=== PATIENT | male | born 1985 | race Caucasian/White ===

== ENCOUNTER 2024-09-27 16:46 | Inpatient (IN) | payer OTHER ==
[~2024-09-27] VITALS: Ht 175.3 cm; Wt 88.6 kg
[2024-09-27] MEDS ORDERED: 0.9% SODIUM CHLORIDE 10 ML SYRINGE IVP ONE (17:09)
[2024-09-27] MEDS ORDERED: IOHEXOL 350 MG/ML 100 ML VIAL ONE (17:09)
[2024-09-27] MEDS ORDERED: SODIUM CHLORIDE 0.9% 100 ML ONE (17:09)
[2024-09-27 17:24] LABS: BASOPHILS % (AUTO) 0.9 % (0.0-2.0); HEMATOCRIT 39.1 % (41-53); HEMOGLOBIN 12.9 g/dL (13.5-17.5); LYMPHOCYTES # (AUTO) 2.3 K/uL (1.0-4.8); LYMPHOCYTES % (AUTO) 39.8 % (22.0-44.0); MEAN CORPUSCULAR HEMOGLOBIN 28.4 pg (26.0-34.0); MEAN CORPUSCULAR VOLUME 86 fL (80-100); MONOCYTES # (AUTO) 0.4 K/uL (0.1-1.0); MONOCYTES % (AUTO) 7.3 % (2.0-9.0); NEUTROPHILS # (AUTO) 2.7 K/uL (1.8-7.7); PLATELET COUNT (AUTO) 329 K/uL (150-450); RED BLOOD CELL COUNT(AUTO) 4.53 MIL/uL (4.50-5.90); RED CELL DISTRIBUTION WIDTH 13.8 % (11.5-14.5); WHITE BLOOD COUNT (AUTO) 5.7 K/uL (4.5-11.0)
[2024-09-27 17:29] LABS: ANION GAP 7 mmol/L (8-16); CALCIUM, TOTAL 8.3 mg/dL (8.8-10.5); CARBON DIOXIDE 25 mmol/L (22-29); CHLORIDE 105 mmol/L (98-107); CREATININE 0.87 mg/dL (0.60-1.30); GLOMERULAR FILTR. RATE CALC > 60 mL/min (>60); GLUCOSE,RANDOM 107 mg/dL (70-110); POTASSIUM 3.6 mmol/L (3.5-5.1); SODIUM SERUM 137 mmol/L (136-145); UREA NITROGEN, BLOOD 13 mg/dL (7-18)
[2024-09-27 17:36] LABS: ALANINE AMINOTRANSFERASE 30 U/L (12-78); ALBUMIN 3.4 g/dL (3.4-5.0); ALKALINE PHOSPHATASE 79 U/L (46-116); ASPARTATE AMINOTRANSFERASE 28 U/L (15-37); BILIRUBIN,TOTAL 0.2 mg/dL (0.1-1.0); LIPASE 41 U/L (16-77); TOTAL PROTEIN, SERUM 6.9 g/dL (6.4-8.2)
[2024-09-27 17:42] LABS: ALCOHOL, BLOOD (SERUM) < 3 mg/dL (0-10)
[2024-09-27 19:28] LABS: APPEARANCE,URINE CLEAR (CLEAR); BILIRUBIN,URINE NEGATIVE (NEGATIVE); COLOR,URINE COLORLESS (YELLOW); GLUCOSE, URINE (UA) NEGATIVE (NEGATIVE); KETONES,URINE NEGATIVE (NEGATIVE); LEUKOCYTE ESTERASE ,URINE NEGATIVE (NEGATIVE); NITRATE,URINE NEGATIVE (NEGATIVE); OCCULT BLOOD,URINE NEGATIVE (NEGATIVE); PH,URINE 5.5 (5.0-8.0); PH,URINE DRUG SCREEN 5.5 (5.0-8.0); PROTEIN,URINE NEGATIVE (NEGATIVE); SPECIFIC GRAVITIY, URINE 1.006 (1.003-1.030); UROBILINOGEN,URINE <=1.0 mg/dL (<=1.0)
[2024-09-27 19:34] LABS: AMPHET/METH SCREEN,URINE POSITIVE (NEGATIVE); BARBITURATE SCREEN, URINE NEGATIVE (NEGATIVE); BENZODIAZEPINES SCREEN,URINE NEGATIVE (NEGATIVE); CANNABINOID SCREEN,URINE NEGATIVE (NEGATIVE); COCAINE SCREEN,URINE NEGATIVE (NEGATIVE); METHADONE SCREEN, URINE NEGATIVE (NEGATIVE); OPIATE SCREEN,URINE NEGATIVE (NEGATIVE); PHENCYCLIDINE SCREEN,URINE NEGATIVE (NEGATIVE)
[2024-09-27 19:35] LABS: ALCOHOL, URINE DRUG SCREEN NEGATIVE (NEGATIVE)
[2024-09-27] MEDS: FAMOTIDINE 20 MG/2 ML VIAL IVP ONE (20:20)
[2024-09-27] MEDS: KETOROLAC TROMETHAMINE 30 MG/ML VIAL IVP ONE (20:20)
[2024-09-27] MEDS ORDERED: ONDANSETRON HCL 4 MG/2 ML VIAL IVP PRN (21:00)
[2024-09-27] MEDS ORDERED: ACETAMINOPHEN 325 MG TABLET PO PRN (21:00)
[2024-09-27] MEDS: DEXTROSE 5%-LACTATED RINGERS 1,000 ML IV SCH (21:52)
[2024-09-27] MEDS: DOCUSATE SODIUM 100 MG CAPSULE PO SCH (21:53)
[2024-09-27] MEDS: POTASSIUM CHLORIDE 10% 40 MEQ/30 ML LIQUID UDCUP PO ONE (21:53)
[2024-09-27] MEDS ORDERED: SODIUM CHLORIDE 0.9% 500 ML IV ONE (22:54)
[2024-09-27 23:00] VITALS: BP 126/73; PULSE 62; RESP 18; TEMP 97.9; O2SAT 99
[2024-09-27] MEDS: VANCOMYCIN 1.25 GM/WATER(PEG) 250 ML IV ONE (23:10)
[2024-09-28] MEDS ORDERED: MIRT-89 PO (03:17)
[2024-09-28] MEDS ORDERED: METH-530 PO (03:17)
[2024-09-28] MEDS ORDERED: BUPR1TAB46 SL (03:17)
[2024-09-28] MEDS ORDERED: ESCI-8 PO (03:17)
[2024-09-28 03:56] VITALS: BP 131/81; PULSE 69; RESP 18; TEMP 97.8; O2SAT 100
[2024-09-28] MEDS ORDERED: HYDR25TA2 PO (05:13)
[2024-09-28] MEDS ORDERED: ARIP10TA38 PO (05:13)
[2024-09-28] MEDS ORDERED: ASPI-1450 PO (05:13)
[2024-09-28] MEDS ORDERED: ATOM40CA9 PO (05:13)
[2024-09-28] MEDS ORDERED: ATOR20TA PO (05:13)
[2024-09-28] MEDS ORDERED: AMLO-257 PO (05:13)
[2024-09-28] MEDS ORDERED: ARIP5TAB37 PO (05:13)
[2024-09-28] MEDS ORDERED: LACT10SO85 PO (05:13)
[2024-09-28] MEDS ORDERED: LEVA15HF3 PO (05:20)
[2024-09-28] MEDS ORDERED: LIDO5JEL9 TP (05:20)
[2024-09-28] MEDS ORDERED: MECL-302 PO (05:20)
[2024-09-28] MEDS ORDERED: MOME13HF8 PUFF (05:22)
[2024-09-28 07:39] LABS: BASOPHILS % (AUTO) 0.7 % (0.0-2.0); EOSINOPHILS % (AUTO) 2.6 % (1.0-6.0); HEMATOCRIT 39.7 % (41-53); HEMOGLOBIN 13.4 g/dL (13.5-17.5); LYMPHOCYTES # (AUTO) 1.1 K/uL (1.0-4.8); LYMPHOCYTES % (AUTO) 17.3 % (22.0-44.0); MEAN CORPUSCULAR HEMOGLOBIN 28.8 pg (26.0-34.0); MEAN CORPUSCULAR HGB CONC 33.7 G/dL (31.0-37.0); MEAN CORPUSCULAR VOLUME 86 fL (80-100); MONOCYTES # (AUTO) 0.4 K/uL (0.1-1.0); MONOCYTES % (AUTO) 5.7 % (2.0-9.0); NEUTROPHILS # (AUTO) 4.9 K/uL (1.8-7.7); NEUTROPHILS % (AUTO) 73.7 % (40.0-70.0); PLATELET COUNT (AUTO) 326 K/uL (150-450); RED BLOOD CELL COUNT(AUTO) 4.65 MIL/uL (4.50-5.90); RED CELL DISTRIBUTION WIDTH 13.9 % (11.5-14.5); WHITE BLOOD COUNT (AUTO) 6.6 K/uL (4.5-11.0)
[2024-09-28 07:44] LABS: ANION GAP 6 mmol/L (8-16); CALCIUM, TOTAL 8.8 mg/dL (8.8-10.5); CARBON DIOXIDE 28 mmol/L (22-29); CHLORIDE 106 mmol/L (98-107); CREATININE 0.86 mg/dL (0.60-1.30); GLOMERULAR FILTR. RATE CALC > 60 mL/min (>60); GLUCOSE,RANDOM 88 mg/dL (70-110); POTASSIUM 3.9 mmol/L (3.5-5.1); SODIUM SERUM 140 mmol/L (136-145); UREA NITROGEN, BLOOD 9 mg/dL (7-18)
[2024-09-28] MEDS ORDERED: VANCOMYCIN 1.25 GM/WATER(PEG) 250 ML IV SCH (08:00)
[2024-09-28 08:04] VITALS: BP 116/74; PULSE 79; RESP 18; TEMP 98.1; O2SAT 99
[2024-09-28 09:06] LABS: HEPATITIS A ANTIBODY IGM Negative (Negative); HEPATITIS B CORE IGM Negative (Negative); HEPATITIS C AB (EIA) Non Reactive (Non Reactive)
[2024-09-28] MEDS: BUPRENORPHINE HCL/NALOXONE HCL 2-0.5 MG SUBLINGUAL TABLET SL SCH (09:11)
[2024-09-28] MEDS: ENOXAPARIN SODIUM 40 MG/0.4 ML PF SYRINGE SQ SCH (09:11)
[2024-09-28] MEDS: VANCOMYCIN HCL 1 GM/D5% WATER 200 ML IV SCH (09:12)
[2024-09-28 20:00] VITALS: BP 116/67; PULSE 74; RESP 16; TEMP 97.9; O2SAT 99
[2024-09-29 07:35] VITALS: BP 125/63; PULSE 78; RESP 20; TEMP 98.2; O2SAT 98
[2024-09-29 08:11] LABS: ANION GAP 6 mmol/L (8-16); CARBON DIOXIDE 29 mmol/L (22-29); CHLORIDE 106 mmol/L (98-107); CREATININE 0.76 mg/dL (0.60-1.30); GLOMERULAR FILTR. RATE CALC > 60 mL/min (>60); GLUCOSE,RANDOM 112 mg/dL (70-110); POTASSIUM 4.1 mmol/L (3.5-5.1); SODIUM SERUM 141 mmol/L (136-145); UREA NITROGEN, BLOOD 9 mg/dL (7-18); VANCOMYCIN,RANDOM 18.5 mcg/mL (25.0-50.0)
[2024-09-29] MEDS: PANTOPRAZOLE SODIUM 40 MG DR TABLET PO SCH (08:43)
[2024-09-29] MEDS: LACTULOSE 20 GM/30 ML SOLUTION UDCUP PO ONE (11:30)
[2024-09-29] MEDS ORDERED: BUPR1TAB33 SL (12:05)
[2024-09-29] MEDS ORDERED: CLIN300C58 PO (12:07)
[2024-09-29] MEDS ORDERED: DOCU-385 PO (12:08)
[2024-09-29] MEDS ORDERED: ACET-2247 PO (12:13)
[2024-09-29] MEDS: CLINDAMYCIN HCL 300 MG CAPSULE PO SCH (16:45)
== END 2024-09-29 16:58 | DRG 603 ==
LOC: EMS 16:46 → EDH 20:58 → 6S 22:53
PROVIDERS: ADMIT Internal Medicine; ATTEND Internal Medicine
DX: L03.116 Cellulitis of left lower limb (principal); F15.10 Other stimulant abuse, uncomplicated; K59.09 Other constipation; F11.10 Opioid abuse, uncomplicated; L03.115 Cellulitis of right lower limb; Z87.891 Personal history of nicotine dependence
CPT/HCPCS: 74177; 76705; 80048; 80074; 80076; 80202; 80307; 81003; 83690; 83735; 85025; 87081; 87340; 99285; G0480; J1650; J1885; J3370; J3490; J7040; J7050